=== PATIENT | female | born 1980 | race Caucasian/White ===

== ENCOUNTER 2018-06-19 20:14 | Emergency (ER) | payer BC ==
[2018-06-19 20:26] VITALS: BP 114/63
[2018-06-19] MEDS ORDERED: NS 0.9% 1000 ML** 1,000 ML IV ONE (20:49)
[2018-06-19] MEDS ORDERED: Ibuprofen TAB* 600 MG PO ONE (20:49)
--- NOTE | 2018-06-19 20:56 | UC ---
UC General HPI - HPI Summary HPI Summary: 37-year-old woman comes in with a chief complaint of generalized illness. Patient was diagnosed with influenza week ago. 2 days ago she stopped was still feeling slightly ill and she ran a half marathon and afterwards felt much worse. Generalized fatigue fevers headache upper back and neck pain. Also feeling like she has to urinate a lot but when she goes she doesn't urinate very much. She has generalized body aches. Denies any runny nose sore throat cough chest congestion or any sort of respiratory symptoms. No abdominal pain. No rash or known tick exposure. - History of Current Complaint Chief Complaint: UCGeneralIllness Stated Complaint: HEADACHE Time Seen by Provider: 06/19/18 20:36 Pain Intensity: 5 - Allergy/Home Medications Allergies/Adverse Reactions: Allergies Allergy/AdvReac Type Severity Reaction Status Date / Time Adhesive Tape Allergy Blisters Verified 06/19/18 20:26 PMH/Surg Hx/FS Hx/Imm Hx Previously Healthy: Yes - Surgical History Surgical History: Yes Surgery Procedure, Year, and Place: PARTIAL HYSTERECTOMY - Family History Known Family History: Positive: Non-Contributory - Social History Alcohol Use: Weekly Alcohol Amount: 2X WEEK Substance Use Type: None Smoking Status (MU): Never Smoked Tobacco Review of Systems All Other Systems Reviewed And Are Negative: Yes Constitutional: Positive: Fever, Chills, Fatigue Skin: Positive: Negative Eyes: Positive: Negative ENT: Positive: Negative Respiratory: Positive: Negative Cardiovascular: Positive: Negative Gastrointestinal: Positive: Negative Genitourinary: Positive: Frequency, Urgency Motor: Positive: Negative Neurovascular: Positive: Negative Musculoskeletal: Positive: Myalgia Neurological: Positive: Headache Psychological: Positive: Negative Is Patient Immunocompromised?: No Physical Exam Triage Information Reviewed: Yes Appearance: No Pain Distress, Well-Nourished, Ill-Appearing - mild Vital Signs: Initial Vital Signs Temp 100.0 F 06/19/18 20:19 Pulse 99 06/19/18 20:19 Resp 16 06/19/18 20:19 BP 114/63 06/19/18 20:19 Pulse Ox 100 06/19/18 20:19 Vital Signs Reviewed: Yes Eye Exam: Normal Eyes: Positive: Conjunctiva Clear ENT: Positive: Pharynx normal, TMs normal Neck: Positive: Supple, Other: - patient localized neck pain to lateral aspects of the neck into the shoulders Respiratory: Positive: Lungs clear, Normal breath sounds, No respiratory distress Cardiovascular: Positive: RRR Abdomen Description: Positive: Nontender, Soft. Negative: CVA Tenderness (R), CVA Tenderness (L) Bowel Sounds: Positive: Present Musculoskeletal Exam: Normal Musculoskeletal: Positive: Strength Intact, ROM Intact Neurological Exam: Normal Neurological: Positive: Alert, Muscle Tone Normal Psychological Exam: Normal Psychological: Positive: Normal Response To Family, Age Appropriate Behavior Skin Exam: Normal Course/Dx - Course Course Of Treatment: In clinic patient was given normal saline 1 L ibuprofen 600 mg by mouth and Zofran 4 mg ODT. There was some improvement in the fever. Overall the patient still feels unwell. Patient does have a headache and neck pain. The neck pain is more in the musculature on the lateral aspects and goes and into her shoulders. She has normal range of motion of the neck she has no back pain. We discussed the signs and symptoms of meningitis which at this time the patient does not have we did discuss if this continued to her her pain did go down into her back today need to go the emergency department for further evaluation. At this time it's all recent the patient has an infection. However the source of the infection is not determined. I discussed all this with the patient and her partner and did let them know that if she was not improving or worsening she needed to go the emergency department for further evaluation and care. - Diagnoses Provider Diagnosis: Fever, Headache Discharge - Sign-Out/Discharge Documenting (check all that apply): Patient Departure All imaging exams completed and their final reports reviewed: No Studies - Discharge Plan Condition: Stable Disposition: HOME Prescriptions: Amoxicillin/Clavulanate TAB* [Augmentin TAB 875*] 875 mg PO BID #19 tab Ondansetron ODT TAB* [Zofran 4 MG Odt TAB*] 4 mg PO Q6H PRN #10 tab.odt PRN Reason: Nausea Patient Education Materials: Fever in Adults (ED), Acute Headache (ED) Referrals: Shhaana Mulligan MD [Primary Care Provider] - Additional Instructions: FOLLOW UP WITH YOUR DOCTOR IF NOT COMPLETELY IMPROVED. GO TO THE EMERGENCY DEPARTMENT FOR ANY WORSENING OF YOUR CONDITION; HEADACHE, NECK AND/OR BACK PAIN, DEHYDRATION, CONFUSION OR ANY QUESTIONS OR CONCERNS. - Billing Disposition and Condition Condition: STABLE Disposition: Home
[2018-06-19] MEDS ORDERED: Ondansetron ODT TAB* 4 MG PO ONE ×2 (22:12→22:28)
[2018-06-19] MEDS ORDERED: Amoxicillin/Clavulanate TAB* 875 MG PO ONE (22:27)
[2018-06-20 11:10] LABS: ABS Basophils 0 10^3/ul (0-0.2); ABS Eosinophils 0.1 10^3/ul (0-0.6); ABS Lymphocytes 0.4 10^3/ul (1.0-4.8); ABS Monocytes 0.1 10^3/ul (0-0.8); ABS Neutrophils 3.4 10^3/ul (1.5-7.7); ABS Nucleated RBC 0 10^3/ul; Eosinophil % 3.3 %; Hematocrit 35 % (33-41); Hemoglobin 11.9 g/dL (12.0-16.0); Lymphocyte % 9.3 %; Mean Corpuscular HGB Conc 34 g/dL (31-36); Mean Corpuscular Hemoglobin 33 pg (27-31); Mean Corpuscular Volume 95 fL (80-97); Mean Platelet Volume 7.5 fL (7.4-10.4); Nucleated Red Blood Cells % 0; Platelet Count 205 10^3/uL (150-450); Red Blood Count 3.65 10^6 /uL (3.70-4.87); Red Cell Distribution Width 12 % (10.5-15)
[2018-06-20 11:17] LABS: Albumin 3.5 g/dL (3.2-5.2); Calcium 8.3 mg/dL (8.6-10.3); Potassium 3.6 mmol/L (3.5-5.0); Total Bilirubin 0.7 mg/dL (0.2-1.0)
[2018-06-20 11:23] LABS: Albumin/Globulin Ratio 1.8 (1-3); BUN/Creatinine Ratio 18.6 (8-20); EGFR Non-African American 114.1 (>60); Globulin 1.9 g/dL (2-4); Total Protein 5.4 g/dL (6.4-8.9)
== END 2018-06-19 22:55 | disposition home or self-care (01) ==
LOC: UCEAST 20:14
DX: R50.9 Fever, unspecified (principal); R51 Headache
CPT/HCPCS: 36415; 80053; 81003; 85025; 86618; 96360; 99213; A9270-GY; G0463